=== PATIENT | female | born 1975 | race Caucasian/White ===

== ENCOUNTER 2019-10-22 16:19 | Emergency (ER) | payer BC, SELFPAY ==
--- NOTE | ~2019-10-22 | XR_ITS ---
EXAMINATION: XR chest 2V DATE: 10/22/2019 17:14 INDICATION: Chest pressure. TECHNIQUE: Frontal and lateral views of the chest were obtained. COMPARISON: CT abdomen and pelvis 11/19/2014 FINDINGS: The chest demonstrates clear lungs without pneumonia, pleural effusion, or pneumothorax. Th e heart size is normal. IMPRESSION: 1. No acute cardiopulmonary disease. Reviewed, dictated and finalized at location A.
--- NOTE | 2019-10-22 16:22 | ECG_ITS ---
Measurements Intervals [place] Rate: 68 P: 11 CO: 124 QRS: 31 QRSD: 89 T: 13 QT: 392 QTc: 417 Interpretive Statements SINUS RHYTHM BASELINE ARTIFACT- I, II ,III, AVR, AVL, V6 NORMAL ECG Electronically Signed On 10-22-2019 16:33:07 CDT by Tylor Coronado D.O.
[2019-10-22 16:23] VITALS: BP 160/101; PULSE 68; RESP 18; TEMP 37.2; O2SAT 99
[2019-10-22 16:37] LABS: Basophils Absolute Auto 0.1 K/mm3 (0.0-0.1); Basophils Percent Auto 0.5 % (0.2-1.2); Eosinophils Absolute Auto 0.1 K/mm3 (0-0.3); Eosinophils Percent Auto 1.3 % (0-4.4); Hematocrit 38.8 % (37.0-47.0); Hemoglobin 12.8 g/dL (12.0-15.0); Immature Granulocyte Absolute 0.03 K/mm3 (0.00-0.031); Immature Granulocyte Percent A 0.3 % (0-0.5); Lymphocytes Absolute Auto 3.85 K/mm3 (0.9-3.2); Lymphocytes Percent Auto 41.5 % (18.3-44.2); Mean Platelet Volume 10.2 fl (7.4-10.4); Monocytes Absolute Auto 0.7 K/mm3 (0.1-0.6); Neutrophils Absolute Auto 4.6 K/mm3 (1.3-6.7); Neutrophils Percent Auto 49.4 % (45.5-73.1); Platelet Count Result 283 k/mm3 (150-375); Red Blood Count 4.41 M/mm3 (4.2-5.4); Red Cell Distribution Width 13.6 % (11.5-14.5); White Blood Count 9.3 K/mm3 (4.5-10.0)
[2019-10-22 16:47] LABS: Partial Thromboplastin Time 23.7 SECONDS (22.3-36.8)
[2019-10-22 16:48] LABS: Blood Urea Nitrogen 13 mg/dL (7-17); Calcium 9.1 mg/dL (8.4-10.2); Carbon Dioxide 26 mmol/L (22-30); Chloride 106 mmol/L (98-107); Estimated CRCL calculation 86 ml/min; Estimated Glomerular Filt Rate > 60; Glucose 114 mg/dL (65-105); Potassium 3.7 mmol/L (3.4-5.0); Sodium 139 mmol/L (137-145)
[2019-10-22 17:01] LABS: Troponin I < 0.012 ng/mL (0.000-0.034)
--- NOTE | 2019-10-22 20:20 | ED.GENADULT ---
HPI - General Adult General Chief complaint: Chest Pain Stated complaint: chest pain Time Seen by Provider: 10/22/19 19:59 History of Present Illness HPI narrative: Patient is a 43 y/o female complaining of midsternal chest pain for 3 days. She states that her chest pain radiates to back sometimes and she rates her pain as 5/10. She has history of anxiety and states that taking Xanax helps sometimes. She has some SOB and dry cough. She denies any fever. Related Data Allergies Allergy/AdvReac Type Severity Reaction Status Date / Time ertapenem Allergy Intermediate RASH Verified 09/27/16 18:02 Review of Systems Constitutional: Constitutional: Denies chills, Denies fever(s), Denies headache(s) and Denies weakness Eyes: Eyes: Denies blurry vision ENT: Denies headache(s) and Denies neck pain Cardiovascular: Cardiovascular: Reports chest pain and Reports dyspnea Respiratory: Respiratory: Reports cough and Reports dyspnea Gastrointestinal: Gastrointestinal: Denies abdominal pain, Denies diarrhea, Denies nausea and Denies vomiting Genitourinary: Genitourinary: Denies hematuria and Denies dysuria Musculoskeletal: Musculoskeletal: Denies back pain and Denies neck pain Neurologic: Denies headache(s) and Denies weakness [facility] Social History Social History Smoking status: Never smoker Alcohol intake: never Gender identity (if verbalized by the patient): Female Exam Const: General: no acute distress and well developed Orientation/consciousness: oriented to person, oriented to place, oriented to time and patient oriented x3 HENMT: Head: normocephalic Ears: external ears normal General nose exam: Normal external nose present Eyes: General: appearance normal, both eyes and all related structures Conjunctivae: conjunctivae normal Neck: Neck: normal visual inspection and full ROM Chest: Chest palpation & inspection: normal inspection of the chest and no tenderness Resp: Effort & Inspection: normal respiratory effort Auscultation: clear to auscultation bilaterally Cardio: Rate: regular rate Rhythm: regular rhythm GI: GI Palp: No abdominal tenderness and Yes Soft to palpation Skin: General skin exam: normal color and turgor normal Neuro: General: oriented to person, oriented to place, oriented to time and patient oriented x3 Cognition (Neuro): normal cognition Extrem: General: normal to inspection, full ROM and no pedal edema Psych: Appearance: grossly normal Mental Status: mental status grossly normal Affect: normal affect Course Vital Signs Vital signs: Vital Signs Temperature 37.2 C 10/22/19 16:23 Pulse Rate 68 10/22/19 16:23 Respiratory Rate 18 10/22/19 16:23 Blood Pressure 160/101 H 10/22/19 16:23 Pulse Oximetry 99 10/22/19 16:23 Temperature 36.7 C 10/22/19 22:03 Pulse Rate 74 10/22/19 22:03 Respiratory Rate 18 10/22/19 22:03 Blood Pressure 130/80 10/22/19 22:03 Pulse Oximetry 98 10/22/19 22:03 Medical Decision Making Vital Signs Vital Signs: Vital Signs Temperature 37.2 C 10/22/19 16:23 Pulse Rate 68 10/22/19 16:23 Respiratory Rate 18 10/22/19 16:23 Blood Pressure 160/101 H 10/22/19 16:23 Pulse Oximetry 99 10/22/19 16:23 Temperature 36.7 C 10/22/19 22:03 Pulse Rate 74 10/22/19 22:03 Respiratory Rate 18 10/22/19 22:03 Blood Pressure 130/80 10/22/19 22:03 Pulse Oximetry 98 10/22/19 22:03 Lab Data Result diagrams: 10/22/19 16:30 10/22/19 16:30 Labs: Lab Results 10/22/19 10/22/19 10/22/19 Range/Units 16:30 16:30 16:30 WBC 9.3 (4.5-10.0) K/mm3 RBC 4.41 (4.2-5.4) M/mm3 Hgb 12.8 (12.0-15.0) g/dL Hct 38.8 (37.0-47.0) % MCV 88.0 (80-100) fl MCH 29.0 (26-34) pg MCHC 33.0 (32-36) g/dl RDW 13.6 (11.5-14.5) % Plt Count 283 (150-375) k/mm3 MPV 10.2 (7.4-10.4) fl Immature Gran % (Au
[2019-10-22 20:33] VITALS: BP 157/99; PULSE 80; RESP 20; O2SAT 100
[2019-10-22 20:52] LABS: Troponin I < 0.012 ng/mL (0.000-0.034)
[2019-10-22 21:05] LABS: D Dimer 0.27 ug/mL (<0.48)
[2019-10-22 22:03] VITALS: BP 130/80; PULSE 74; RESP 18; TEMP 36.7; O2SAT 98
[2019-10-23 14:52] LABS: SARS-CoV-2 RNA PCR Negative
== END 2019-10-22 22:04 | disposition home or self-care (01) ==
PROVIDERS: Emergency Provider Emergency Medicine
DX: Z20.828 Contact with and (suspected) exposure to other viral communicable diseases (principal); R06.02 Shortness of breath
CPT/HCPCS: 36415; 71046; 80048; 84484; 85025; 85380; 85610; 85730; 87635; 93005; 99284; C9803; U0003

== ENCOUNTER 2020-03-18 18:03 | Emergency (ER) | payer BC, SELFPAY ==
--- NOTE | ~2020-03-18 | XR_ITS ---
EXAMINATION: XR chest 2V DATE: 03/18/2020 19:55 INDICATION: Hypertension TECHNIQUE: PA and lateral views of the chest are obtained. COMPARISON: 10/22/2019 FINDINGS: The lungs are free of acute opacities. There is no pleural effusion or pneumothorax. The ca rdiomediastinal silhouette is normal. The visualized bones and soft tissues are unremarkable. IMPRESSION: 1. No acute cardiopulmonary abnormality. Reviewed, dictated and finalized at location A. VACUUM TESTER
[2020-03-18 18:24] VITALS: BP 179/111; PULSE 78; RESP 17; TEMP 36.7; O2SAT 100
[2020-03-18 19:26] VITALS: BP 182/113; PULSE 68; RESP 17; O2SAT 99
--- NOTE | 2020-03-18 19:36 | ECG_ITS ---
Measurements Intervals [place] Rate: 63 P: -6 AL: 128 QRS: 16 QRSD: 94 T: 7 QT: 400 QTc: 412 Interpretive Statements SINUS RHYTHM VOLTAGE CRITERIA FOR LVH BORDERLINE ECG Electronically Signed On 03-19-2020 7:00:23 TELEVISION CABLE INSTALLER by Tylor Coronado D.O.
--- NOTE | 2020-03-18 19:40 | ED.RECABL ---
HPI - Recheck/Abnormal Lab/Rx General Chief Complaint: Recheck/Abnormal Lab/Rx Stated Complaint: High blood pressure Time Seen by Provider: 03/18/20 19:34 Related Data Home Medications Medication Instructions Recorded Confirmed amlodipine [Norvasc] 2.5 mg PO DAILY 03/18/20 metoprolol tartrate 37.5 mg PO DAILY 03/18/20 Allergies Allergy/AdvReac Type Severity Reaction Status Date / Time ertapenem Allergy Intermediate RASH Verified 03/18/20 19:26 [facility] Social History Social History Smoking status: Never smoker Alcohol intake: never Gender identity (if verbalized by the patient): Female Course Vital Signs Vital signs: Vital Signs Temperature 36.7 C 03/18/20 18:24 Pulse Rate 78 03/18/20 18:24 Respiratory Rate 17 03/18/20 18:24 Blood Pressure 179/111 H 03/18/20 18:24 Pulse Oximetry 100 03/18/20 18:24 Temperature 36.7 C 03/18/20 18:24 Pulse Rate 68 03/18/20 19:26 Respiratory Rate 17 03/18/20 19:26 Blood Pressure 182/113 H 03/18/20 19:26 Pulse Oximetry 99 03/18/20 19:26 Discharge Plan Discharge Prescriptions: No Action amlodipine [Norvasc] 2.5 mg Tablet 2.5 mg PO DAILY RF: 0 metoprolol tartrate 37.5 mg Tablet 37.5 mg PO DAILY RF: 0
[2020-03-18 19:51] LABS: Basophils Absolute Auto 0.1 K/mm3 (0.0-0.1); Basophils Percent Auto 0.7 % (0.2-1.2); Eosinophils Absolute Auto 0.1 K/mm3 (0-0.3); Eosinophils Percent Auto 1.4 % (0-4.4); Hematocrit 40.4 % (37.0-47.0); Hemoglobin 13.2 g/dL (12.0-15.0); Immature Granulocyte Absolute 0.02 K/mm3 (0.00-0.031); Immature Granulocyte Percent A 0.2 % (0-0.5); Lymphocytes Absolute Auto 3.94 K/mm3 (0.9-3.2); Mean Corpuscular HGB Conc 32.7 g/dl (32-36); Mean Corpuscular Hemoglobin 29.3 pg (26-34); Mean Corpuscular Volume 89.6 fl (80-100); Mean Platelet Volume 9.8 fl (7.4-10.4); Monocytes Absolute Auto 0.7 K/mm3 (0.1-0.6); Monocytes Percent Auto 6.9 % (2.6-8.5); Neutrophils Absolute Auto 4.6 K/mm3 (1.3-6.7); Neutrophils Percent Auto 48.8 % (45.5-73.1); Platelet Count Result 291 k/mm3 (150-375); Red Blood Count 4.51 M/mm3 (4.2-5.4); Red Cell Distribution Width 13.9 % (11.5-14.5); White Blood Count 9.4 K/mm3 (4.5-10.0)
[2020-03-18 20:02] LABS: INR 0.9; Partial Thromboplastin Time 24.4 SECONDS (22.3-36.8); Prothrombin Time 12.9 Seconds (11.1-14.7)
[2020-03-18 20:04] LABS: Anion Gap 5 mmol/L (8-16); Blood Urea Nitrogen 10 mg/dL (7-17); Calcium 9.5 mg/dL (8.4-10.2); Carbon Dioxide 30 mmol/L (22-30); Chloride 105 mmol/L (98-107); Estimated CRCL calculation 83 ml/min; Estimated Glomerular Filt Rate > 60; Glucose 101 mg/dL (65-105); Potassium 3.6 mmol/L (3.4-5.0); Sodium 140 mmol/L (137-145)
[2020-03-18 20:16] LABS: Troponin I < 0.012 ng/mL (0.000-0.034)
--- NOTE | 2020-03-18 20:40 | ED.RECABL ---
HPI - Recheck/Abnormal Lab/Rx General Chief Complaint: Recheck/Abnormal Lab/Rx Stated Complaint: High blood pressure Time Seen by Provider: 03/18/20 19:34 Source: patient Mode of arrival: ambulatory Limitations: no limitations History of Present Illness HPI narrative: 44-year-old female History of hypertension and migraine headaches She currently does not have any complaints Her blood pressure was high when she checked it at home this morning and had been running high for a few days before that It was again high when she was seen in her neurologist office this afternoon to get Botox injections for headaches and it was recommended that she should be checked in the ER She arrives here fully asymptomatic, not even a headache Nothing that to have triggered the rise in the blood pressure is evident, no missed doses no salty dietary indiscretions no recent heavy NSAID use etc. She takes relatively low doses of Toprol, 37.5 mg, and amlodipine 2.5 mg which are prescribed by her primary doctor who closed their office in [facility] a couple months ago As far as she knows neither of them were prescribed for migraine prophylaxis Related Data Home Medications Medication Instructions Recorded Confirmed amlodipine [Norvasc] 2.5 mg PO DAILY 03/18/20 metoprolol tartrate 37.5 mg PO DAILY 03/18/20 Allergies Allergy/AdvReac Type Severity Reaction Status Date / Time ertapenem Allergy Intermediate RASH Verified 03/18/20 19:26 Review of Systems Review of Systems: All systems reviewed & are unremarkable except as noted in HPI and below Constitutional: Constitutional: Denies chills, Denies fatigue, Denies fever(s), Denies headache(s) and Denies weakness Eyes: Eyes: Reports no additional eye complaints and Denies change in vision ENT: Denies headache(s), Denies epistaxis, Denies nasal congestion and Denies sore throat Cardiovascular: Cardiovascular: Denies chest pain, Denies leg edema, Denies palpitations and Denies dyspnea Respiratory: Respiratory: Denies cough, Denies dyspnea and Denies wheezing Gastrointestinal: Gastrointestinal: Denies abdominal pain, Denies diarrhea, Denies nausea and Denies vomiting Genitourinary: Genitourinary: Denies hematuria, Denies urinary frequency and Denies dysuria Musculoskeletal: Musculoskeletal: Denies deformity, Denies arthralgias, Denies joint swelling, Denies muscle weakness and Denies numbness Integumentary/Breasts: Skin/Breast: Denies rash and Denies wounds Neurologic: Denies headache(s), Denies focal weakness, Denies numbness and Denies weakness Psychiatric: Psychiatric: Reports no additional psychiatric complaints Endocrine: Endocrine: Denies fatigue and Denies palpitations Hematologic/Lymphatic: Hematologic/Lymphatic: Denies easy bleeding and Denies easy bruising Allergic/Immunologic: Allergic/Immunologic: Denies wheezing PMFSH Social History Social History Smoking status: Never smoker Alcohol intake: never Gender identity (if verbalized by the patient): Female Exam Const: General: no acute distress, well developed and awake Nutritional Appearance: well nourished Orientation/consciousness: patient oriented x3 (alert) Limitations: no limitations HENMT: Head: normocephalic and atraumatic Ears: external ears normal General nose exam: No nasal discharge present and no epistaxis Face and sinus: face symmetric Eyes: Conjunctivae: conjunctivae normal Sclera: sclerae normal Pupils: Equal, round and reactive pupils present EOM: EOMs intact bilaterally Neck: Neck: normal visual inspection, supple and no JVD Chest: Chest palpation & inspection: deferred Resp: Effort & Inspection: normal respiratory effort Auscultation: clear to auscultation bilaterally, no rales, no rhonchi, no wheezes and other (BS =) Cardio: Rate: regular rate Rhythm: regular rhythm Heart sounds: no gallops and no murmurs GI: Inspection: pawan
[2020-03-18] MEDS: amLODIPine BESYLATE 5 MG TABLET 10 MG PO (21:03)
[2020-03-18 21:05] VITALS: BP 179/107; PULSE 83; RESP 17; O2SAT 97
== END 2020-03-18 21:10 | disposition home or self-care (01) ==
PROVIDERS: Emergency Provider Emergency Medicine
DX: I10 Essential (primary) hypertension (principal); R94.31 Abnormal electrocardiogram [ECG] [EKG]
CPT/HCPCS: 36415; 71046; 80048; 84484; 85025; 85610; 85730; 93005; 99284; A9270

== ENCOUNTER → 2020-10-24 14:53 | Outpatient (CLI) | payer BC, SELFPAY ==
--- NOTE | ~2020-10-24 | MM_ITS ---
EXAMINATION: MM screening [facility] BI w [place] HISTORY: Screening TECHNIQUE: Craniocaudal and mediolateral oblique 3-D tomosynthesis images were obtained and synthetic 2-D images were generated. CAD analysis was submitted and interpreted. COMPARISON: Comparison to multiple prior studies sequentially, with oldest reviewed study dated 09/18. BREAST PARENCHYMAL COMPOSITION: There are scattered areas of fibroglandular density. FINDINGS: There is no evidence of suspicious mass, calcification, or architectural distortion to sugg est malignancy in either breast. There has been no suspicious interval change. IMPRESSION: 1. No mammographic evidence of malignancy. 2. Recommend routine screening mammography in one year. BI-RADS Category 1: Negative Reviewed, dictated and finalized at location A.
== END ==
PROVIDERS: Visit Provider Obstetrics & Gynecology Gynecology
DX: Z12.31 Encounter for screening mammogram for malignant neoplasm of breast (principal)
CPT/HCPCS: 77063; 77067

== ENCOUNTER 2021-11-14 14:33 | Emergency (ER) | payer BC, SELFPAY ==
[2021-11-14 14:46] VITALS: BP 120/71; PULSE 78; RESP 18; TEMP 36.4; O2SAT 100
--- NOTE | 2021-11-14 15:30 | ECG_ITS ---
Measurements Intervals [place] Rate: 65 P: -15 ID: 163 QRS: 11 QRSD: 100 T: 6 QT: 419 QTc: 437 Interpretive Statements SINUS RHYTHM WITHIN NORMAL LIMITS COMPARED TO ECG 03/18/2020 20:07:14 NO DIFFERENCE Electronically Signed On 11-15-2021 8:19:26 CDT by José Miguel Campbell M.D.
[2021-11-14] MEDS: SODIUM CHLORIDE 0.9% IV 1,000 ML 999 ML IV CONT (15:45)
[2021-11-14 15:56] LABS: Basophils Absolute Auto 0.1 K/mm3 (0.0-0.1); Basophils Percent Auto 0.7 % (0.2-1.2); Eosinophils Absolute Auto 0.1 K/mm3 (0-0.3); Eosinophils Percent Auto 1.5 % (0-4.4); Hematocrit 38.2 % (37.0-47.0); Hemoglobin 12.6 g/dL (12.0-15.0); Immature Granulocyte Absolute 0.01 K/mm3 (0.00-0.031); Immature Granulocyte Percent A 0.1 % (0-0.5); Lymphocytes Absolute Auto 2.82 K/mm3 (0.9-3.2); Lymphocytes Percent Auto 41.3 % (18.3-44.2); Mean Corpuscular Hemoglobin 28.9 pg (26-34); Mean Corpuscular Volume 87.6 fl (80-100); Mean Platelet Volume 10.2 fl (7.4-10.4); Monocytes Absolute Auto 0.6 K/mm3 (0.1-0.6); Monocytes Percent Auto 8.8 % (2.6-8.5); Neutrophils Absolute Auto 3.2 K/mm3 (1.3-6.7); Neutrophils Percent Auto 47.6 % (45.5-73.1); Platelet Count Result 238 k/mm3 (150-375); Red Blood Count 4.36 M/mm3 (4.2-5.4); Red Cell Distribution Width 13.5 % (11.5-14.5); White Blood Count 6.8 K/mm3 (4.5-10.0)
[2021-11-14 15:57] LABS: Appearance Urine Clear (Clear); Bilirubin Urine Negative (Negative); Blood Urine Negative (Negative); Color Urine Yellow (Yellow); Glucose Urine UA Negative (Negative); Ketones Urine Negative (Negative); Leukocyte Esterase Ur Negative LEU/UL (Negative); Nitrate Urine Negative (Negative); Protein Urine Negative (Negative); Specific Grav Ur >= 1.030 (1.001-1.035); Urobilinogen Urine 0.2 mg/dL (<2.0)
--- NOTE | 2021-11-14 16:02 | ED.GENADULT ---
HPI - General Adult General Chief complaint: Abdominal Pain Stated complaint: abd pain Time Seen by Provider: 11/14/21 15:28 History of Present Illness HPI narrative: 45-year-old female presents for evaluation of of diffuse abdominal and bilateral flank pain which is a constant mild soreness. Patient states frequent and recurrent constipation and thinks that she may be constipated. She has not had a bowel movement for 3 to 4 days. No fever, vomiting. Previous bowel movements have been hard. Patient admits to poor fiber and fluid intake and does not really eat vegetables. No vaginal discharge, pelvic pain, urinary symptoms. Related Data Home Medications Medication Instructions Recorded Confirmed amlodipine 2.5 mg tablet (Norvasc) 2.5 mg PO DAILY 03/18/20 metoprolol tartrate 37.5 mg tablet 37.5 mg PO DAILY 03/18/20 Allergies Allergy/AdvReac Type Severity Reaction Status Date / Time ertapenem Allergy Intermediate RASH Verified 03/18/20 19:26 Review of Systems Review of Systems: CONSTITUTIONAL: Denies fever, chills, or sweats. EYES: Denies visual changes, redness, or discharge. ENT: Denies rhinorrhea, congestion, sore throat, or otalgia. CARDIOVASCULAR: Denies chest pain, palpitations, or edema. RESPIRATORY: Denies cough or dyspnea. GASTROINTESTINAL: Denies abdominal pain, nausea, vomiting, or diarrhea. GENITOURINARY: Denies dysuria or hematuria. SKIN: Denies rash or itching. MUSCULOSKELETAL: Denies back pain, joint pain, or myalgia. NEUROLOGIC: Denies headache, numbness, or weakness. PSYCHIATRIC: Denies anxiety or depression. [facility] Social History Social History Smoking status: Never smoker Alcohol intake: never Gender identity (if verbalized by the patient): Female Exam Narrative: GENERAL: Well-appearing, well-nourished, and in no acute distress. HEAD: Normocephalic, atraumatic. EYES: PERRLA and EOMI. ENT: Nares clear, no rhinorrhea or epistaxis. Mucous membranes moist. NECK: Supple. CHEST: Clear to auscultation. No respiratory distress. HEART: Regular rate and rhythm. No murmur heard. Normal peripheral pulses. ABDOMEN: Soft, nontender, nondistended, normal active bowel sounds. EXTREMITIES: Normal range of motion. No edema. SKIN: Warm, dry, no rash. NEURO: No focal deficits. Alert and oriented x3. PSYCH: Normal mood and affect. Course Vital Signs Vital signs: Vital Signs Temperature 97.6 F 11/14/21 14:46 Pulse Rate 78 11/14/21 14:46 Respiratory Rate 18 11/14/21 14:46 Blood Pressure 120/71 11/14/21 14:46 Pulse Oximetry 100 11/14/21 14:46 Oxygen Delivery Room Air 11/14/21 14:46 Temperature 97.6 F 11/14/21 14:46 Pulse Rate 78 11/14/21 14:46 Respiratory Rate 18 11/14/21 14:46 Blood Pressure 120/71 11/14/21 14:46 Pulse Oximetry 100 11/14/21 14:46 Oxygen Delivery Room Air 11/14/21 14:46 Medical Decision Making MDM Narrative Medical decision making narrative: 45-year-old overall well-appearing female presents for evaluation of diffuse abdominal pain she thinks is likely constipation. Patient has recurrent constipation and has not had a bowel movement for 3 to 4 days. Labs are grossly unremarkable in history and physical exam does not indicate an acute process in the abdomen which would require imaging. Will give stool softening medication and patient will improve her p.o. intake of fiber and fluids. Vital Signs Vital Signs: Vital Signs Temperature 97.6 F 11/14/21 14:46 Pulse Rate 78 11/14/21 14:46 Respiratory Rate 18 11/14/21 14:46 Blood Pressure 120/71 11/14/21 14:46 Pulse Oximetry 100 11/14/21 14:46 Oxygen Delivery Room Air 11/14/21 14:46 Temperature 97.6 F 11/14/21 14:46 Pulse Rate 78 11/14/21 14:46 Respiratory Rate 18 11/14/21 14:46 Blood Pressure 120/71 11/14/21 14:46 Pulse Oximetry 100 11/14/21 14:46 Oxygen Delivery Room Air 11/14/21 14:46
[2021-11-14 16:06] LABS: Alanine Aminotransferase 28 U/L (6-35); Albumin Level 4.3 g/dL (3.5-5.1); Alkaline Phosphatase 72 U/L (38-126); Anion Gap 10 mmol/L (8-16); Aspartate Amino Transferase 39 U/L (14-36); Bilirubin,Total 0.4 mg/dL (0.2-1.3); Blood Urea Nitrogen 13 mg/dL (7-17); Calcium 9.2 mg/dL (8.4-10.2); Carbon Dioxide 29 mmol/L (22-30); Chloride 97 mmol/L (98-107); Estimated CRCL calculation 82 ml/min; Estimated Glomerular Filt Rate > 60; Glucose 93 mg/dL (65-110); Lipase 67 U/L (23-300); Potassium 3.1 mmol/L (3.4-5.0); Sodium 136 mmol/L (137-145)
[2021-11-14 16:08] LABS: Mucus Urine Rare /lpf; Squamous Epithelial Cell Urine Moderate /hpf (Few); WBC Urine 0-3 /hpf
[2021-11-14 16:10] LABS: Add Urine Microscopic? NO; INR 1.1; Prothrombin Time 13.4 Seconds (11.1-14.7)
[2021-11-14 16:11] LABS: Partial Thromboplastin Time 25.6 SECONDS (22.3-36.8)
[2021-11-14 16:17] LABS: Troponin I < 0.012 ng/mL (0.000-0.034)
[2021-11-14] MEDS: LACTULOSE 20 GM/30 ML UDC PO (17:07)
== END 2021-11-14 17:17 | disposition home or self-care (01) ==
PROVIDERS: Emergency Provider Emergency Medicine; PCP Hospitalist
DX: R10.9 Unspecified abdominal pain (principal)
CPT/HCPCS: 36415; 80053; 81003; 83690; 84484; 85025; 85610; 85730; 93005; 96360; 99284; A9270; J7030

== ENCOUNTER → 2022-01-20 16:13 | Outpatient (CLI) | payer BC, SELFPAY ==
--- NOTE | ~2022-01-20 | MM_ITS ---
EXAMINATION: MM screening [facility] BI w [place] HISTORY: Screening TECHNIQUE: Craniocaudal and mediolateral oblique 3-D tomosynthesis images were obtained and synthetic 2-D images were generated. CAD analysis was submitted and interpreted. COMPARISON: Comparison to multiple prior studies sequentially, with oldest reviewed study dated 09/18. BREAST PARENCHYMAL COMPOSITION: Breast composed of scattered areas of fibroglandular density FINDINGS: There are focal clustered indeterminate calcifications in the lower outer quadrant of the r ight breast. There are no suspicious masses, calcifications or architectural distortion in the left b reast to suggest malignancy. IMPRESSION: 1. New focal cluster of indeterminate right breast calcifications, lower outer quadrant anteriorly. 2. Magnification views are recommended. BI-RADS Category 0: Incomplete: Needs additional imaging evaluation. Reviewed, dictated and finalized at location A.
== END ==
PROVIDERS: PCP Hospitalist; Visit Provider Obstetrics & Gynecology Gynecology
DX: Z12.31 Encounter for screening mammogram for malignant neoplasm of breast (principal); R92.8 Other abnormal and inconclusive findings on diagnostic imaging of breast
CPT/HCPCS: 77063; 77067

== ENCOUNTER → 2022-02-04 08:48 | Outpatient (CLI) | payer BC, SELFPAY ==
--- NOTE | ~2022-02-04 | MM_ITS ---
EXAMINATION: MM diagnostic mammo unilat RT HISTORY: Indeterminate right breast calcifications on screening mammogram TECHNIQUE: Magnification views of the right breast were performed. CAD analysis was submitted and int erpreted. COMPARISON: 01/20/2022, 10/24/2020, 03/25/2018 FINDINGS: No persistent calcification is identified with magnification views. Finding on screening ma mmogram is likely due to pseudocalcification. No suspicious mass or architectural distortion are iden tified. IMPRESSION: 1. No mammographic evidence of malignancy. 2. Recommend routine screening mammography in one year. BI-RADS Category 1: Negative Reviewed, dictated and finalized at location A.
== END ==
PROVIDERS: PCP Hospitalist; Visit Provider Obstetrics & Gynecology Gynecology
DX: R92.8 Other abnormal and inconclusive findings on diagnostic imaging of breast (principal)
CPT/HCPCS: 77065

== ENCOUNTER → 2023-04-27 15:04 | Outpatient (CLI) | payer BC, SELFPAY ==
--- NOTE | ~2023-04-27 | MM_ITS ---
EXAMINATION: MM screening [facility] BI w [place] HISTORY: Screening TECHNIQUE: Craniocaudal and mediolateral oblique 3-D tomosynthesis images were obtained and synthetic 2-D images were generated. CAD analysis was submitted and interpreted. COMPARISON: Comparison to multiple prior studies sequentially, with oldest reviewed study dated 07/30. BREAST PARENCHYMAL COMPOSITION: There are scattered areas of fibroglandular density. FINDINGS: There is no evidence of suspicious mass, calcification, or architectural distortion to sugg est malignancy in either breast. There has been no suspicious interval change. IMPRESSION: 1. No mammographic evidence of malignancy. 2. Recommend routine screening mammography in one year. BI-RADS Category 1: Negative Reviewed, dictated and finalized at location A. ER SETUP OPERATOR
== END ==
PROVIDERS: PCP Nurse Practitioner; Visit Provider Nurse Practitioner
DX: Z12.31 Encounter for screening mammogram for malignant neoplasm of breast (principal)
CPT/HCPCS: 77063; 77067

== ENCOUNTER 2024-04-30 13:37 | Outpatient (CLI) | payer BC, SELFPAY ==
--- NOTE | ~2024-04-30 | MM_ITS ---
EXAMINATION: MM screening [facility] BI w [place] HISTORY: Screening TECHNIQUE: Craniocaudal and mediolateral oblique 3-D tomosynthesis images were obtained and synthetic 2-D images were generated. CAD analysis was submitted and interpreted. COMPARISON: Comparison to multiple prior studies sequentially, with oldest reviewed study dated 07/30. BREAST PARENCHYMAL COMPOSITION: Not dense: There are scattered areas of fibroglandular density. FINDINGS: There is no evidence of suspicious mass, calcification, or architectural distortion to sugg est malignancy in either breast. There has been no suspicious interval change. IMPRESSION: 1. No mammographic evidence of malignancy. 2. Recommend routine screening mammography in one year. BI-RADS Category 1: Negative Reviewed, dictated and finalized at location A. EAR TECHNICIAN
== END 2024-04-30 13:38 | disposition home or self-care (01) ==
PROVIDERS: PCP Hospitalist; Visit Provider Nurse Practitioner
DX: Z12.31 Encounter for screening mammogram for malignant neoplasm of breast (principal)
CPT/HCPCS: 77063; 77067